=== PATIENT | female | born 1960 | race African-American/Black ===

== ENCOUNTER 2025-02-25 18:49 | Emergency (ER) | payer OTHER ==
[2025-02-25] MEDS ORDERED: HYDROcodone/Acetaminophen 10/325 mg Tablet ONE (19:11)
== END 2025-02-25 20:02 | disposition home or self-care (01) ==
LOC: NAV ERS 18:49
DX: S90.31XA Contusion of right foot, initial encounter (principal); E11.9 Type 2 diabetes mellitus without complications; I10 Essential (primary) hypertension; Z79.84 Long term (current) use of oral hypoglycemic drugs; Z79.899 Other long term (current) drug therapy; V09.9XXA Pedestrian injured in unspecified transport accident, initial encounter
CPT/HCPCS: 99283